=== PATIENT | male | born 1985 | race Hispanic/Latino ===

== ENCOUNTER 2024-09-25 20:07 | Emergency (ER) | payer OTHER ==
[2024-09-25 20:36] VITALS: PULSE 77; RESP 19; TEMP 99.2
[2024-09-25 20:38] LABS: BASOPHILS % 0.4 % (0.0-1.0); EOSINOPHILS # (AUTO) 0.2 (0.0-0.4); EOSINOPHILS % 1.6 % (0.0-6.0); HEMATOCRIT 43.6 % (38.2-49.6); HEMOGLOBIN 14.3 g/dL (14.0-18.0); LYMPHOCYTES # (AUTO) 4.3 (1.0-3.2); LYMPHOCYTES % 38.4 % (18.0-39.1); MEAN CORPUSCULAR HEMOGLOBIN 29.7 pg (28-32); MEAN CORPUSCULAR HGB CONC 32.8 g/dL (31-35); MEAN CORPUSCULAR VOLUME 90.5 fL (81-99); MONOCYTES # (AUTO) 0.7 (0.2-0.8); MONOCYTES % 6.5 % (4.4-11.3); NEUTROPHILS # (AUTO) 5.8 (2.1-6.9); NEUTROPHILS % 52.6 % (38.7-80.0); PLATELET COUNT 191 x10e3/uL (140-360); RED BLOOD COUNT 4.82 x10e6/uL (4.3-5.7); RED CELL DISTRIBUTION WIDTH 13.1 % (11.7-14.4); WHITE BLOOD COUNT 11.08 x10e3/uL (4.8-10.8)
[2024-09-25 20:50] LABS: ALANINE AMINOTRANSFERASE 17 IU/L (0-55); ALBUMIN 4.4 g/dL (3.5-5.0); ALBUMIN/GLOBULIN RATIO 1.1 (0.8-2.0); ALKALINE PHOSPHATASE 54 IU/L (40-150); BILIRUBIN,TOTAL 0.5 mg/dL (0.2-1.2); BLOOD UREA NITROGEN 23 mg/dL (7-26); BUN/CREATININE RATIO 21 (6-25); CARBON DIOXIDE 23 mmol/L (22-29); CHLORIDE 106 mmol/L (98-107); CREATINE KINASE 122 IU/L (30-200); CREATININE, SERUM 1.12 mg/dL (0.72-1.25); EST GLOMERULAR FILTRATION RATE 85 ML/MIN (>=60); GLUCOSE 130 mg/dL (74-118); SODIUM 142 mmol/L (136-145); TOTAL PROTEIN 8.4 g/dL (6.5-8.1)
[2024-09-25 20:58] LABS: TROPONIN I < 0.001 ng/mL (0-0.300)
[2024-09-25 21:06] VITALS: BP 129/84; PULSE 74; RESP 14; TEMP 98.4; O2SAT 100
== END 2024-09-25 21:18 | disposition home or self-care (01) ==
LOC: ER 20:25
DX: R06.02 Shortness of breath (principal); R07.89 Other chest pain; R00.2 Palpitations; I10 Essential (primary) hypertension; E11.65 Type 2 diabetes mellitus with hyperglycemia
CPT/HCPCS: 36415; 71045; 80053; 82550; 83690; 83880; 84484; 85025; 93005; 99284

== ENCOUNTER 2025-07-17 08:11 | Emergency (ER) | payer OTHER ==
[~2025-07-17] VITALS: Ht 180.3 cm; Wt 108.9 kg
[2025-07-17 08:13] VITALS: PULSE 70; RESP 18; TEMP 98.3
[2025-07-17 08:43] LABS: BASOPHILS % 0.5 % (0.0-1.0); EOSINOPHILS % 11.2 % (0.0-6.0); LYMPHOCYTES % 16.5 % (18.0-39.1); MONOCYTES % 4.8 % (4.4-11.3); NEUTROPHILS % 66.8 % (38.7-80.0); RED CELL DISTRIBUTION WIDTH 13.7 % (11.7-14.4)
[2025-07-17] MEDS ORDERED: IOPAMIDOL 370 MG/ML 100 ML INFUS..BTL INJ ONE (08:44)
[2025-07-17 08:48] LABS: EPITHELIAL CELLS,URINE FEW /LPF; LEUKOCYTE ESTERASE ,URINE TRACE (NEGATIVE); PROTEIN,URINE DIPSTICK 1+ (NEGATIVE); URINE UROBILINOGEN 0.2 mg/dL (0.2 - 1); WBC,URINE (MAN) >50 /HPF (0-5)
[2025-07-17 09:08] LABS: EST GLOMERULAR FILTRATION RATE 92.0 ML/MIN (>=60)
[2025-07-17] MEDS ORDERED: AUGMENTIN 500-1 EACH PO (09:36)
[2025-07-17] MEDS ORDERED: FLOMAX0.4 MG PO (09:36)
[2025-07-17 09:57] VITALS: BP 164/97; PULSE 79; RESP 18; O2SAT 100
== END 2025-07-17 09:55 | disposition home or self-care (01) ==
LOC: ER 08:14
DX: R30.0 Dysuria (principal); N30.91 Cystitis, unspecified with hematuria; R91.8 Other nonspecific abnormal finding of lung field; I10 Essential (primary) hypertension; E11.65 Type 2 diabetes mellitus with hyperglycemia
CPT/HCPCS: 36415; 74177; 80053; 81001; 83690; 85025; 99284; Q9967